=== PATIENT | male | born 1965 | race Two or more races ===

== ENCOUNTER → 2025-06-08 | Emergency (ER) | payer OTHER ==
[~2025-06-08] VITALS: Ht 172.7 cm; Wt 117.0 kg
[~2025-06-08] MED LIST: AZITHROMYCIN 500 MG TABLET PO ONE; CARDURA1 MG; CIPRO500 MG PO; CRESTOR40 MG; DEXAMETHASONE SODIUM PHOSPHATE 4 MG/ML VIAL IM ONE; GUAIFENESIN/DEXTROMETHORPHAN 100MG/10ML BLIST.PACK PO ONE; HYDRODIURIL12.5 MG; IBUPROFEN800 MG PO; LOTREL 10-20 MG1 CAP PO; NORVASC5 MG; PAXLOVID 300-11 EAC1 PO; PLAVIX75 MG PO; PYRIDIUM100 M1 PO; PYRIDIUM200 MG PO; TAMS0.4C PO; TUSNEL LIQUID178 ML PO; ULTRACET PO; ZYLOPRIM100 M1
[2025-06-08 14:23] LABS: BASO % 0.5 % (0.1-1.2); EOS # 0.11 (0.04-0.54); EOS % 1.1 % (0.7-7.0); LYMPH # 1.52 (1.18-3.74); LYMPH % 15.1 % (19.3-53.1); MEAN PLATELET VOLUME 9.50 fl (9.4-12.4); MONO # 1.18 (0.24-0.82); MONO % 11.7 % (4.7-12.5); NEUT # 7.16 (1.56-6.13); NEUT % 71.2 % (34.0-71.1); RED CELL DISTRIBUTION WIDTH 13.4 % (11.6-14.4)
[2025-06-08 14:43] LABS: COVID-19 AG POSITIVE (NEGATIVE)
[2025-06-08 14:58] LABS: ALT/SGPT 27.0 U/L (12-78); AST/SGOT 11.0 U/L (15-37); BILIRUBIN TOTAL 0.46 mg/dL (0.3-1.2); BUN CREA RATIO 13.0 (7.0-25.0); CREATININE SERUM 1.66 mg/dL (0.70-1.30); GFR 42.47; GLOBULINA 2.9 G/DL (2.4-3.5); GLUCOSE FASTING 101.0 mg/dL (65-100); OSMOLALITY SERUM 290.0 MOSM/KG (275-295)
== END | disposition home or self-care (01) ==
LOC: ER 12:54
PROVIDERS: General Practice
DX: U07.1 COVID-19 (principal); N28.1 Cyst of kidney, acquired; N20.0 Calculus of kidney; I10 Essential (primary) hypertension